=== PATIENT | female | born 1965 | race Caucasian/White ===

== ENCOUNTER 2020-01-15 16:15 | Emergency (ER) | payer OTHER ==
[~2020-01-15] VITALS: Ht 162.6 cm; Wt 71.7 kg
== END 2020-01-15 22:11 | disposition home or self-care (01) ==
LOC: ER 16:15 → CPU-OBS 16:30 → ER 16:30
DX: R07.89 Other chest pain (principal); N39.0 Urinary tract infection, site not specified; E87.6 Hypokalemia
CPT/HCPCS: G0378; G0379; 93005